=== PATIENT | male | born 1995 | race Caucasian/White ===

== ENCOUNTER 2021-05-25 23:40 | Emergency (ER) | payer SELFPAY ==
[~2021-05-25] VITALS: Ht 180.3 cm; Wt 74.8 kg
[2021-05-25 23:54] VITALS: BP 128/74
--- NOTE | 2021-05-25 23:54 | NUR ---
C/O RIGHT GROIN PAIN X 1 MONTH. DENIES URINARY COMPLAINTS
--- NOTE | 2021-05-26 03:05 | NUR ---
URINE DIPPED. URINE SENT TO LAB FOR GC AND CHLAYMIDIA.
[2021-05-26 05:05] VITALS: BP 128/74
--- NOTE | 2021-05-26 05:05 | NUR ---
Patient discharged with v/s stable. Written and verbal after care instructions given and explained. Patient verbalized understanding. Ambulatory with steady gait. All questions addressed prior to discharge. Advised to follow up with PMD.
== END 2021-05-26 05:05 | disposition home or self-care (01) ==
LOC: MED 23:40
DX: N50.82 Scrotal pain (principal)
CPT/HCPCS: 36415; 76870; 81002; 87491; 99284